=== PATIENT | female | born 1950 | race Caucasian/White ===

== ENCOUNTER 2024-05-30 13:29 | Emergency (ER) | payer OTHER ==
[~2024-05-30] VITALS: Ht 160 cm; Wt 85.0 kg
[2024-05-30 17:02] VITALS: BP 138/94; PULSE 63; O2SAT 96
[2024-05-30 17:24] VITALS: RESP 18
[2024-05-30 18:35] VITALS: TEMP 98
== END 2024-05-30 18:37 | disposition home or self-care (01) ==
LOC: ER 13:29
DX: U07.1 COVID-19 (principal); S93.492A Sprain of other ligament of left ankle, initial encounter; S09.8XXA Other specified injuries of head, initial encounter; S99.821A Other specified injuries of right foot, initial encounter; R55 Syncope and collapse; Z60.2 Problems related to living alone; X58.XXXA Exposure to other specified factors, initial encounter; Y93.89 Activity, other specified; Y92.89 Other specified places as the place of occurrence of the external cause; Y99.8 Other external cause status
CPT/HCPCS: 70450; 72170; 73564; 73610; 99284